=== PATIENT | female | born 2000 | race Caucasian/White ===

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

== ENCOUNTER → 2020-06-28 | Outpatient (CLI) | payer MEDICAID ==
[~2020-06-28] MED LIST: FERR325T18 PO
--- NOTE | 2020-06-28 15:51 | Diagnostic Imaging Report ---
PROCEDURE: US OB SINGLE FETUS <14 WKS. TECHNIQUE: Multiple real-time grayscale images were obtained over the gravid uterus in various projections. INDICATION: dates. FINDINGS: Uterus measures 9.5 x 7.4 x 8.5 cm. There is intrauterine gestational sac containing a pole consistent with approximately 9 weeks 2 days gestational age. heart rate was recorded at 182 bpm. No nancy-gestational sac hemorrhage is detected. Adnexa are unremarkable. There is no free fluid. IMPRESSION: Single live IUP 9 weeks 2 days gestational age. Estimated date of confinement sonographically is 01/29/2021. Dictated by: Dictated on workstation # [id number]
== END ==
LOC: RAD 14:00
PROVIDERS: ATTEND Family Medicine
DX: Z34.91 Encounter for supervision of normal pregnancy, unspecified, first trimester (principal); Z3A.09 9 weeks gestation of pregnancy
CPT/HCPCS: 76801

== ENCOUNTER 2020-08-22 19:32 | Emergency (ER) | payer MEDICAID ==
[~2020-08-22] VITALS: Ht 160 cm; Wt 67.0 kg
[2020-08-22 20:05] LABS: BILIRUBIN,URINE NEGATIVE (NEGATIVE); CLARITY,URINE CLEAR; COLOR,URINE YELLOW; GLUCOSE, URINE (UA) NEGATIVE (NEGATIVE); KETONES,URINE NEGATIVE (NEGATIVE); LEUKOCYTE ESTERASE ,URINE 1+ (NEGATIVE); NITRITE,URINE NEGATIVE (NEGATIVE); PH,URINE 7.5 (5-9); PROTEIN,URINE NEGATIVE (NEGATIVE)
[2020-08-22 20:13] LABS: AMORPHOUS SEDIMENT,UR MOD AMOR PHOSPHATE /LPF; BACTERIA,URINE TRACE /HPF; TRICHOMONAS,URINE FEW /HPF
--- NOTE | 2020-08-22 20:18 | ED EENT ---
History of Present Illness General Chief Complaint: Oral/Throat Problems Stated Complaint: 17 WKS PREG/SOB/HEADACHE/SORE THROAT/COUGH/FEVER Source: patient Exam Limitations: no limitations History of Present Illness Date Seen by Provider: August 22, 2020 Time Seen by Provider: 19:39 Initial Comments Patient presents ER by private conveyance from home with chief complaint that since Sunday, 2 days ago she started having some sinus pressure or rhinorrhea mild sore throat occasional dry nonproductive cough malaise and body aches. Several of her friends she was hanging out with on Sunday also developed similar symptoms and because one of them works at the hospital they are all convinced they have COVID-19. None of them have undergone any testing. She has been using Tylenol, vapor rubs and throat lozenges without significant relief of her symptoms. She is had no fever. She is a G1 at 17 weeks with uneventful thus far. No abdominal pain nausea vomiting diarrhea constipation discharge dysuria or vaginal bleeding. Allergies and Home Medications Allergies Coded Allergies: No Known Drug Allergies (Unverified , 03/13/18) Home Medications Ferrous Sulfate 325 Mg Tablet, 325 MG PO BID Prescribed by: MAREN ADHIKARI on 03/16/18 0807 Metronidazole 500 Mg Tablet, 500 MG PO BID Prescribed by: CORY ROMERO on 08/22/202022 Patient Home Medication List Home Medication List Reviewed: Yes Review of Systems Review of Systems Constitutional: No chills; malaise Eyes: Denies Blindness, Denies Blurred Vision, Denies Drainage Ears: Denies Dizziness, Denies Pain, Denies Purulent Discharge Nose: congestion; denies epistaxis, denies pain; clear discharge Mouth: denies pain, denies swelling Throat: denies pain, denies swelling; hoarse Respiratory: cough; No phlegm, No short of breath, No wheezing All Other Systems Reviewed Negative Unless Noted: Yes Past Hjtxkhl-Paieeg-Ygplwp Hx Patient Social History Alcohol Use: Denies Use Smoking Status: Never a Smoker Seasonal Allergies Seasonal Allergies: No Past Medical History Surgeries: No Respiratory: No Cardiac: No Neurological: No Genitourinary: No Gastrointestinal: No Musculoskeletal: No Endocrine: No HEENT: No Cancer: No Psychosocial: No Integumentary: No Blood Disorders: No Family Medical History Patient reports no known family medical history. Physical Exam Vital Signs Vital Signs - First Documented 08/22/20 20:01 Temp 37.0 Pulse 94 Resp 14 B/P (MAP) 119/63 (81) Pulse Ox 99 O2 Delivery Room Air Height, Weight, BMI Height: 5'3.00" Weight: 169lbs. 0.0oz. 76.007265wq; 29.9 BMI Method: General Appearance: WD/WN, no apparent distress Eyes: bilateral eye normal inspection, bilateral eye PERRL, bilateral eye EOMI Ears: bilateral ear auricle normal, bilateral ear canal normal, bilateral ear TM normal Nose: No foreign body; sinus tenderness (Maxillary and frontal sinuses bilateral tender to palpation without mucopurulent discharge.) Mouth/Throat: other (Retropharyngeal erythema with tonsillar swelling without exudative appearance) Neck: non-tender, full range of motion, supple, normal inspection Cardiovascular: normal peripheral pulses, regular rate, rhythm Respiratory: lungs clear, normal breath sounds, no respiratory distress, no accessory muscle use Neurologic/Psychiatric: alert, oriented x 3 Progress/Results/Core Measures Results/Orders Lab Results Laboratory Tests Test 08/22/20 19:39 Range/Units Urine Color YELLOW Urine Clarity CLEAR Urine pH 7.5 5-9 Urine Specific [place] 1.020 1.016-1.022 Urine Protein NEGATIVE NEGATIVE Urine Glucose (UA) NEGATIVE NEGATIVE Urine Ketones NEGATIVE NEGATIVE Urine Nitrite NEGATIVE NEGATIVE Urine Bilirubin NEGATIVE NEGATIVE Urine Urobilinogen 1.0 < = 1.0 MG/DL Urine Leukocyte Esterase 1+ H NEGATIVE Urine RBC (Auto) NEGATIVE NEGATIVE Urine RBC NONE /HPF Urine WBC 5-10 H /HPF Urine Squamous Epithelial Cells 10-25 H /HPF Urine Crystals PRESENT H /LPF Urine Amorphous Sediment MOD LIGIA PHOSPHATE H /LPF Urine Bacteria TRACE /HPF Urine Casts NONE /LPF Urine Mucus NEGATIVE /LPF Urine Trichomonas FEW H /HPF Urine Culture Indicated YES SARS-CoV-2 RNA (RT-PCR) Not Detected Not Detecte Group A Streptococcus Screen NEGATIVE NEGATIVE Micro Results Microbiology 08/22/20 Influenza Types A,B Antigen (SONIA) - Final, Complete My Orders Orders - CORY ROMERO Covid 19 Inhouse Test (08/22/20 19:34) Ua Culture If Indicated (08/22/20 19:36) Influenza A And B Antigens (08/22/20 19:34) Urine Bedside (08/22/20 19:36) Rapid Strep A Screen (08/22/20 19:52) Urine Culture (08/22/20 19:39) Azithromycin Tablet (Zithromax Tablet) (08/22/20 20:45) Ceftriaxone For Im Use (Rocephin For Im (08/22/20 20:45) Lidocaine 1% Inj 20 Ml (Xylocaine 1% Inj (08/22/20 20:45) Vital Signs/I&O 08/22/20 20:01 Temp 37.0 Pulse 94 Resp 14 B/P (MAP) 119/63 (81) Pulse Ox 99 O2 Delivery Room Air Progress Progress Note #1: Time: 20:16 Progress Note She appears to have a viral cold. Plan to check Covid, influenza since we have had several cases this week and a rapid strep. We have discussed appropriate medications and symptom management techniques as well as tempered her expectations for how long these illnesses usually last Progress Note #2: Time: 20:48 Progress Note Discussed trichomonas and its risk that he presents for premature rupture of membranes. We have opted to do Flagyl treatment as well as provided her partner a prescription for Flagyl. We also discussed the testing and treatment for other common STDs and she agreed to do that today so we will give her a half a gram of Rocephin IM and 1 g of azithromycin p.o. Departure Impression Primary Impression: Viral upper respiratory tract infection with cough Additional Impression: Trichomoniasis of bladder Disposition: 01 HOME, SELF-CARE Condition: Stable Departure-Patient Inst. Decision time for Depature: 20:16 Referrals: MAREN ADHIKARI MD (PCP/Family) Primary Care Physician Patient Instructions: Cough, Runny Nose, and the Common Cold (DC), Trichomoniasis (DC), Sexually Transmitted Diseases ED Add. Discharge Instructions: Typically these will resolve in 5 to 7 days on their own. Make sure you are drinking plenty of fluids and using Tylenol 1000 mg every 8 hours as necessary for pain. Nasal saline to help keep things moisturized as well as vapor rubs such as Vicks or Mentholatum can be helpful. You may use Zyrtec or Claritin 10 mg a day as necessary for symptoms. Alternatively you can use Benadryl as well but this may cause drowsiness. Throat lozenges if you are having a sore throat or Tea with honey and lemon has been found to be beneficial for sore throat. If your nasal congestion turns to thick purulent discharge, last for more than 10 days or has severe pain associated with it not resolved by heat, moisture and Tylenol then you should follow-up with your primary care provider for reexamination and to discuss initiation of antibiotics. You may return to work when you are 24 hours symptoms free without medications to mask symptoms. You have trichomonas which can be treated with Flagyl 1 tablet with food twice a day for the next week. Follow-up in the next week with your primary OB provider. All discharge instructions reviewed with patient and/or family. Voiced understanding. Scripts Metronidazole (Flagyl) 500 Mg Tablet 500 MG PO BID for 7 Days, #14 TAB 0 Refills Prov: CORY ROMERO 08/22/20 Work/School Note: Work Release Form Date Seen in the Emergency Department: August 22, 2020 Return to Work: August 30, 2020 Restrictions: No Restrictions Other Restrictions Listed Below: May return to work as soon as 24 hours symptom-free. Copy Copies To 1: MAREN ADHIKARI MD, TITUS J August 22, 2020 20:18
[2020-08-22] MEDS ORDERED: METR500T PO (20:23)
[2020-08-22] MEDS ORDERED: AZITHROMYCIN 250 MG TAB (ZITHROMAX) PO ONE (20:45)
[2020-08-22] MEDS ORDERED: LIDOCAINE 1% INJ 20 ML 20 ML VIAL INJ ONE (20:45)
[2020-08-22] MEDS ORDERED: cefTRIAXone 500 MG/1.43 ML vial (IM ONLY) IM ONE (20:45)
[2020-08-22 21:44] VITALS: BP 112/72
== END 2020-08-22 21:39 | disposition home or self-care (01) ==
LOC: EDUNIT# 19:32 → ER 19:35
DX: O99.512 Diseases of the respiratory system complicating pregnancy, second trimester (principal); J06.9 Acute upper respiratory infection, unspecified; O98.312 Other infections with a predominantly sexual mode of transmission complicating pregnancy, second trimester; A59.03 Trichomonal cystitis and urethritis; Z3A.17 17 weeks gestation of pregnancy
CPT/HCPCS: 81000; 84703; 87088; 87430; 87804; 96372; 99282; U0002; 87635

== ENCOUNTER → 2020-09-06 | Outpatient (CLI) | payer MEDICAID ==
[~2020-09-06] MED LIST changes: +METR500T PO
--- NOTE | 2020-09-06 15:02 | Diagnostic Imaging Report ---
INDICATION: survey. TECHNIQUE: Multiple Real-time grayscale images were obtained over the gravid uterus. COMPARISON: 06/28/2020. FINDINGS: There is a single fetus in a cephalic presentation. heart rate was recorded at 147 BPM. Placenta is posterior. Amniotic fluid volume is normal. Cervix is 4.2 cm in length. kidneys, bladder, and stomach are unremarkable. brain is unremarkable. There is a four-chamber heart. There is a three-vessel cord with normal insertion. spine is unremarkable. Biometrical measurements are as follows: Biparietal 4.27 cm, age 19 weeks 0 days. Head circumference 16.08 cm, age 19 weeks 0 days. Abdominal circumference 13.16 cm, age 18 weeks 5 days. Femur length 3.04 cm, age 19 weeks 3 days. Sonographic estimate age: 19 weeks 1 days. Sonographic estimated date of delivery: 01/30/21. Estimated Weight: 269 gm (+/- 39 gm). LMP percentile: 46%. heart rate: 147 beats per minute. number: 1 of 1. IMPRESSION: Single live IUP of 19 weeks 1 day gestational age. This demonstrates normal interval growth when compared with the prior exam. No complicating features are detected. Dictated by: Dictated on workstation # [id number]
== END ==
LOC: RAD 13:21
PROVIDERS: ATTEND Family Medicine
DX: Z34.92 Encounter for supervision of normal pregnancy, unspecified, second trimester (principal); Z3A.19 19 weeks gestation of pregnancy
CPT/HCPCS: 76805

== ENCOUNTER → 2020-11-19 | Outpatient (CLI) | payer MEDICAID | LOC: WSo 10:08 | PROVIDERS: ATTEND Family Medicine | DX: Z34.92 Encounter for supervision of normal pregnancy, unspecified, second trimester (principal); Z3A.00 Weeks of gestation of pregnancy not specified | CPT/HCPCS: 96372 ==

== ENCOUNTER 2021-01-20 08:15 | Inpatient (IN) | payer MEDICAID ==
[~2021-01-20] VITALS: Ht 162.6 cm; Wt 77.2 kg
--- OUTSIDE RECORDS SUMMARY | 2021-01-20 19:02 | XMS REPORT | Clinical Summary ---
Author Author [facility] Organization [facility] Address Unknown Phone Unavailable Care Team Providers Care Coroner Forensic Technician Name Role Phone Ap Ayana G STUDENT PCP Unavailable Allergies No known active allergies Medications End Date Status Medication Sig Dispensed Refills Start Date Active escitalopram (LEXAPRO) 10 Take 1 tablet 30 tablet 0 MG tabletIndications: (10 mg total) 9 Major Depressive Disorder by mouth daily. Indications: Major Depressive Disorder Active ferrous sulfate Take 1 tablet 30 tablet 0 01/24/20 1 (DAHLIA-IN-YVON) 325 (65 Fe) (325 mg 9 MG tabletIndications: total) by Iron Deficiency Anemia mouth daily with breakfast. Indications: Anemia From Inadequate Iron in the Body Active melatonin 5 MG Take 1 tablet 0 TABSIndications: Major (5 mg total) 9 depressive disorder, by mouth at recurrent severe without bedtime as psychotic features (HCC) needed (insomnia). 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 01/20/2019 Tobacco use 01/20/2019 Suicide attempt 01/20/2019 Anxiety disorder 01/20/2019 Cannabis use disorder, mild, abuse 01/20/2019 Psychophysiological insomnia 01/20/2019 Resolved Problems Problem Noted Date Resolved Date Depression, unspecified depression type 01/20/2019 01/20/2019 Family History Medical History Relation Name Comments Cancer Father Depression Father Diabetes Father Heart disease Father Depression Mother Diabetes Mother Heart disease Mother Relation Name Status Comments Father Mother Social History Date Tobacco Use Types Packs/Day Years Used Never Smoker Smokeless Tobacco: Never Used Comments Alcohol Use Standard Drinks/Week Drinks "anything", once a weekish Yes 4 (1 standard drink = 0.6 o z pure alcohol) Control Partners Comments Sexually Active None LMP 01/10/19 Yes Sex Assigned at Date Recorded Not on file Last Filed Vital Signs Reading Time Taken Comments Vital Sign 95/55 01/22/2019 5:06 AM CDT Blood Pressure 74 01/22/2019 5:06 AM CDT Pulse 36.7 C (98.1 F) 01/22/2019 5:05 AM CDT Temperature 16 01/22/2019 5:06 AM CDT Respiratory Rate 100% 01/22/2019 5:06 AM CDT Oxygen Saturation - - Inhaled Oxygen Concentration 70.3 kg (155 lb) 01/20/2019 2:36 AM CDT Weight 160 cm (5' 3") 01/20/2019 2:36 AM CDT Height 27.46 01/20/2019 2:36 AM CDT Body Mass Index Plan of Treatment Health Maintenance Due Date Last Done Comments HPV Vaccines (1 - 2-dose 08/03/2011 series) COVID-19 Vaccine (1) 2012 MenB Vaccine (Bexsero) (1 2016 of 2) Hepatitis C Screening 2018 DTaP,Tdap,and Td Vaccines 08/03/2019 (1 - Tdap) MMR Vaccines-Adult 08/03/2019 Influenza Vaccine (#1) 2020 01/09/2020 Pneumo-Vaccine: 65+Yrs (1 2065 of 1 - PPSV23) Varicella Vaccines Completed 11/13/2006, 10/02/2001 HIB Vaccines Aged Out No longer eligible based on patient's age to complete this topic IPV Vaccines Aged Out No longer eligible based on patient's age to complete this topic Meningococcal Vaccine Aged Out No longer eligib le based on patient's age to complete this topic Pneumo-Vaccine: Peds (0-5 Aged Out No longer el igible based on patient's age to Yrs) & At-Risk Patients complete this topic (6-64 Yrs) Rotavirus Vaccines Aged Out No longer eligible based on patient's age to complete this topic Results Not on filefrom Last 3 Months Insurance Type Payer Benefit Subscriber ID Effective Phone Address Plan / Dates Group KANCARE [employer]ET[employer] KANCARE 19 [id number] 2019- [address] [employer] Present [id number] [facility] [id number] Advance Directives For more information, please contact: [phone] Patient Rolling Attendant Explanation Type Date Recorded Advance Directives and Living Will Power of Chemical Mixer Date Inactivated Comments Code Status Date Activated Full Code 01/22/2019 9:54 AM 01/22/2019 9:54 AM Full Code 01/20/2019 3:45 AM Care Teams Start Date End Date Coroner Forensic Technician Relationship Specialty 01/20/19 Ayana De Souza, PCP - General STUDENT
[2021-01-20] MEDS ORDERED: D5 LR IV SOLUTION 1,000 ML IV ONE (19:12)
[2021-01-20] MEDS: D5 LR IV SOLUTION 1,000 ML IV SCH (19:30)
[2021-01-20] MEDS ORDERED: AMPICILLIN FOR IV USE 2,000 MG in WATER (STERILE) FOR INJECTION 14.8 ML IV SCH (19:50)
[2021-01-20] MEDS ORDERED: MINERAL OIL CONCENTRATE 99.9% 15 ML UDC TOP PRN (20:00)
[2021-01-20] MEDS ORDERED: ZOLPIDEM 5 MG (AMBIEN) TAB ONE (20:55)
[2021-01-20 21:00] VITALS: BP 117/73
[2021-01-20] MEDS ORDERED: BUTORPHANOL INJ 2 MG/ML (STADOL) VIAL IV PRN (21:00)
[2021-01-20] MEDS ORDERED: TERBUTALINE INJ 1 MG/ML (BRETHINE) AMP SC PRN (21:00)
[2021-01-20] MEDS ORDERED: ZOLPIDEM 5 MG (AMBIEN) TAB PO ONE (21:00)
[2021-01-20] MEDS ORDERED: ONDANSETRON 4 MG/2 ML (SDV) Z0FRAN IVP PRN (21:00)
[2021-01-20 22:48] LABS: BASOPHILS % (AUTO) 0 % (0-10); EOSINOPHILS # (AUTO) 0.2 10^3/uL (0.0-0.3); EOSINOPHILS % (AUTO) 1 % (0-10); HEMATOCRIT 33 % (35-52); HEMOGLOBIN 9.9 g/dL (11.5-16.0); LYMPHOCYTES # (AUTO) 3.2 10^3/uL (1.0-4.0); LYMPHOCYTES % (AUTO) 23 % (12-44); MEAN CORPUSCULAR HEMOGLOBIN 26 pg (25-34); MEAN CORPUSCULAR HGB CONC 30 g/dL (32-36); MEAN CORPUSCULAR VOLUME 84 fL (80-99); MONOCYTES # (AUTO) 0.7 10^3/uL (0.0-1.0); MONOCYTES % (AUTO) 5 % (0-12); NEUTROPHILS # (AUTO) 9.7 10^3/uL (1.8-7.8); NEUTROPHILS % (AUTO) 70 % (42-75); PLATELET COUNT 277 10^3/uL (130-400); WHITE BLOOD COUNT 13.9 10^3/uL (4.3-11.0)
[2021-01-21] VITALS (53 sets, daily range): BP systolic 83–129; BP diastolic 47–82
[2021-01-21] MEDS: AMPICILLIN FOR IV USE 1,000 MG in WATER (STERILE) FOR INJECTION 7.4 ML IV SCH ×4 (01:40→13:57)
[2021-01-21] MEDS: D5 LR IV SOLUTION 1,000 ML IV SCH ×2 (04:28→12:40)
--- NOTE | 2021-01-21 06:25 | History & Physical-OB ---
OB - Chief Complaint & HPI Date/Time Date of Admission: Date of Admission: Jan 20, 2021 at 18:57 Date seen by a Provider: Jan 21, 2021 Time Seen by a Provider: 06:25 Chief Complaint/History OB-Reason for Admission/Chief: Induction of Labor Hx : 2 Hx Para: 1 Expected Date of Delivery: Jan 29, 2021 Gestational Age in Weeks: 38 Gestational Age in Days: 6 Indication for induction: maternal distance Admission Nurse Assessment Rev: Yes History of Labs GBS negative, but previous with having GBS sepsis Allergies and Home Medications Allergies Coded Allergies: No Known Drug Allergies (Unverified , 03/13/18) Patient Home Medication List Home Medication List Reviewed: Yes Ferrous Sulfate (Ferrous Sulfate) 325 Mg Tablet, 325 MG PO BID Prescribed by: MAREN ADHIKARI on 03/16/18 0807 Last Action: Reviewed Discontinued Medications Metronidazole (Flagyl) 500 Mg Tablet, 500 MG PO BID Discontinued Reason: No Longer Taking Prescribed by: CORY ROMERO on 08/22/202022 Last Action: Discontinued OB - History Hx of Present Care: Yes Ultrasounds: Normal mid trimester US Obstetrical Complications: None Medical Complications: None Patient Past Medical History no chronic medical problems OB - Admission Exam Physical Exam Vitals: Vital Signs 01/20/21 01/21/21 21:00 06:00 Temp 36.8 Pulse 82 Resp 18 B/P (MAP) 88/53 (65) Pulse Ox 97 O2 Delivery Room Air HEENT: Moist Membranes Heart: Rhythm Normal Lungs: Clear Abdomen: Gravid Cervical Dilatation: 1cm Effacement: 50% Station: -3 Membranes: Intact Heart Rate: 130's Labs Laboratory Tests Test 01/20/21 22:36 Range/Units White Blood Count 13.9 H 4.3-11.0 10^3/uL Red Blood Count 3.87 3.80-5.11 10^6/uL Hemoglobin 9.9 L 11.5-16.0 g/dL Hematocrit 33 L 35-52 % Mean Corpuscular Volume 84 80-99 fL Mean Corpuscular Hemoglobin 26 25-34 pg Mean Corpuscular Hemoglobin Concent 30 L 32-36 g/dL Red Cell Distribution Width 23.7 H 10.0-14.5 % Platelet Count 277 130-400 10^3/uL Mean Platelet Volume 10.0 9.0-12.2 fL Immature Granulocyte % (Auto) 1 % Neutrophils (%) (Auto) 70 42-75 % Lymphocytes (%) (Auto) 23 12-44 % Monocytes (%) (Auto) 5 0-12 % Eosinophils (%) (Auto) 1 0-10 % Basophils (%) (Auto) 0 0-10 % Neutrophils # (Auto) 9.7 H 1.8-7.8 10^3/uL Lymphocytes # (Auto) 3.2 1.0-4.0 10^3/uL Monocytes # (Auto) 0.7 0.0-1.0 10^3/uL Eosinophils # (Auto) 0.2 0.0-0.3 10^3/uL Basophils # (Auto) 0.0 0.0-0.1 10^3/uL Immature Granulocyte # (Auto) 0.1 0.0-0.1 10^3/uL OB - Assessment/Plan/Diagnosis Assessment Assessment: induction of labor Admission Dx 1. IUP at 38w6d gestation Admission Status: Inpatient Order (span 2 midnights) Reason for Inpatient Admission: Induction of labor Plan Plan: Induction Induction Method: per Misoprostol Protocol MAREN ADHIKARI MD Jan 21, 2021 06:25
[2021-01-21] MEDS ORDERED: OXYTOCIN PRE-MIX DRIP 500 ML IV SCH ×2 (07:45→17:00)
[2021-01-21] MEDS ORDERED: FLU QUADRIvalent (3YOA+) 60 mcg/0.5 ml 2021-22(AFLURIA) IM ONE (08:00)
[2021-01-21] MEDS ORDERED: fentaNYL 2 mcg/ml BUPIVA 0.125 100 ML ONE (08:52)
[2021-01-21] MEDS ORDERED: BUPIVACAINE 0.25% 30 ML (SENSORCAINE) VIAL ONE (09:21)
[2021-01-21] MEDS ORDERED: fentaNYL INJ 100 MCG/2 ML AMP ONE (09:21)
[2021-01-21] MEDS ORDERED: CATHETER FLUSH 10 ML SYR IV PRN (09:30)
[2021-01-21] MEDS ORDERED: diphenhydrAMINE 50 MG/ML INJ (BENADRYL) IV PRN (09:30)
[2021-01-21] MEDS ORDERED: fentaNYL 2 mcg/ml BUPIVA 0.125 100 ML IV SCH (09:30)
[2021-01-21] MEDS ORDERED: NALOXONE 0.4 MG/ML 1 ML (NARCAN) VIAL IV PRN ×2 (09:30→17:00)
[2021-01-21] MEDS ORDERED: ONDANSETRON 4 MG/2 ML (SDV) Z0FRAN IV PRN (09:30)
[2021-01-21] MEDS ORDERED: LACTATED RINGERS 1,000 ML IV ONE (09:30)
[2021-01-21] MEDS: CATHETER FLUSH 10 ML SYR IV SCH ×3 (10:42→15:50)
[2021-01-21] MEDS ORDERED: MEPIVACAINE (CARBOCAINE) 2% 50 ML VIAL ONE (16:15)
--- NOTE | 2021-01-21 16:57 | OB Labor & Delivery Record ---
L&D History Date of Service Date of Service: Jan 21, 2021 History Expected Date of Delivery: Jan 29, 2021 Gestational Age in Weeks: 38 Hx : 2 Hx Para: 2 Complications Events: Routine care Operative Indications (Cesarea: N/A-Vaginal Delivery Intrapartal Events: None L&D Stage1 Stage One Onset of Labor - Date: Jan 21, 2021 Onset of Labor - Time: 06:25 Monitors and Tracing Monitor Mode: Internal Heart Rate: 140 Monitor Accelerations: Uniform Monitor Decelerations: None Station: -1 Shelter Variability: Average (6-10) Short Term Variability: Present Presentation: Vertex Vital Signs VS - Last 72 Hours, by Label 01/20/21 01/20/21 01/20/21 01/21/21 21:00 22:00 23:00 00:00 Temp 36.8 Pulse 94 85 85 86 Resp 18 18 18 18 B/P (MAP) 117/73 (88) 110/61 (77) Pulse Ox 98 96 96 99 O2 Delivery Room Air Room Air Room Air Room Air 01/21/21 01/21/21 01/21/21 01/21/21 01:00 02:00 02:00 03:00 Pulse 85 91 83 91 Resp 18 18 18 18 B/P (MAP) 100/57 (71) 95/54 (68) Pulse Ox 97 98 97 98 O2 Delivery Room Air Room Air Room Air Room Air 01/21/21 01/21/21 01/21/21 01/21/21 04:00 05:00 05:00 06:00 Temp 36.8 Pulse 81 81 85 82 Resp 18 18 18 18 B/P (MAP) 97/58 (71) 88/53 (65) Pulse Ox 99 99 97 97 O2 Delivery Room Air Room Air Room Air Room Air 01/21/21 01/21/21 01/21/21 01/21/21 06:00 07:00 07:10 07:30 Temp 36.6 Pulse 72 Resp 18 18 B/P (MAP) 115/67 (83) Pulse Ox 99 O2 Delivery Room Air Room Air Room Air Room Air 01/21/21 01/21/21 01/21/21 01/21/21 08:00 08:15 08:30 08:45 Pulse 80 86 81 Resp 16 16 16 B/P (MAP) 109/70 (83) 108/62 (77) 104/66 (79) O2 Delivery Room Air Room Air Room Air Room Air 01/21/21 01/21/21 01/21/21 01/21/21 09:00 09:15 09:25 09:30 Pulse 76 100 84 Resp 16 16 16 B/P (MAP) 117/75 (89) 129/70 (89) 111/71 (84) Pulse Ox 99 100 O2 Delivery Room Air Room Air Room Air Room Air 01/21/21 01/21/21 01/21/21 01/21/21 09:35 09:45 09:48 09:51 Pulse 88 90 99 126 Resp 16 16 16 16 B/P (MAP) 106/63 (77) 108/65 (79) 112/69 (83) 107/67 (80) Pulse Ox 98 97 98 97 O2 Delivery Room Air Room Air Room Air Room Air 01/21/21 01/21/21 01/21/21 01/21/21 09:54 09:57 10:00 10:05 Temp 36.5 Pulse 125 122 135 137 Resp 16 16 16 16 B/P (MAP) 105/59 (74) 107/60 (76) 124/80 (95) Pulse Ox 97 97 98 97 O2 Delivery Room Air Room Air Room Air Room Air 01/21/21 01/21/21 01/21/21 01/21/21 10:06 10:07 10:15 10:20 Pulse 122 98 86 97 Resp 16 16 16 16 B/P (MAP) 127/82 (97) 117/67 (84) 106/66 (79) 118/67 (84) Pulse Ox 97 97 98 97 O2 Delivery Room Air Room Air Room Air Room Air 01/21/21 01/21/21 01/21/21 01/21/21 10:30 10:45 11:00 11:15 Pulse 88 62 75 67 Resp 16 16 16 16 B/P (MAP) 106/61 (76) 91/55 (67) 95/57 (70) 88/50 (63) Pulse Ox 98 96 96 97 O2 Delivery Room Air Room Air Room Air Room Air 01/21/21 01/21/21 01/21/21 01/21/21 11:30 11:45 12:00 12:15 Temp 36.6 Pulse 63 65 67 66 Resp 16 16 16 16 B/P (MAP) 83/47 (59) 86/53 (64) 97/54 (68) 91/54 (66) Pulse Ox 97 97 97 97 O2 Delivery Room Air Room Air Room Air Room Air 01/21/21 01/21/21 01/21/21 01/21/21 12:30 12:45 13:00 13:15 Pulse 87 64 71 78 Resp 16 16 16 16 B/P (MAP) 110/67 (81) 101/58 (72) 97/56 (70) 103/65 (78) Pulse Ox 97 97 97 97 O2 Delivery Room Air Room Air Room Air Room Air 01/21/21 01/21/21 01/21/21 01/21/21 13:30 13:45 14:00 14:15 Temp 36.6 Pulse 79 86 73 83 Resp 16 16 16 16 B/P (MAP) 99/60 (73) 101/63 (76) 98/59 (72) 99/56 (70) Pulse Ox 97 97 97 97 O2 Delivery Room Air Room Air Room Air Room Air 01/21/21 01/21/21 01/21/21 01/21/21 14:30 14:45 15:00 15:15 Pulse 69 88 82 Resp 16 16 16 B/P (MAP) 96/52 (67) 99/52 (68) 106/63 (77) Pulse Ox 97 O2 Delivery Room Air Room Air Room Air Room Air 01/21/21 15:30 Pulse 81 Resp 16 B/P (MAP) 93/50 (64) O2 Delivery Room Air Signs of Distress by FHT Signs of Distress no Rupture of Membranes Spontaneous Ruture of Membrane: No Amniotic Membrane Rupture Time: 0625 Amniotic Membrane Fluid Desc.: Clear Induction/Anesthesia Epidural Cath Placement - Time: 0936 L&D Stage2 Stage Two Stage II Date: Jan 21, 2021 Stage II Time: 16:35 Monitors and Tracing Monitor Mode: Internal Heart Rate: 140 Monitor Accelerations: Uniform Monitor Decelerations: Variable Shelter Variability: Average (6-10) Short Term Variability: Present Position: Left Occiput Anterior Presentation: Vertex Signs of Distress by FHT Signs of Distress no Cord Descript/Complications Cord Vessel Description: 3 Vessels Delivery Type Infant Delivery Method: Spontaneous Vaginal Anterior Shoulder: Left Episiotomy/Perineal Laceration Laceraction(s)/Extensions: No Episiotomy Description: None Condition of Infant Delivery 1 minute Comment: 8 5 minute Comment: 9 Condition of Condition of : Living Exam: No Observed Abnormalities Resuscitation Resuscitation: N/A - Spontaneous Resp L&D Stage3 Stage Three Stage III Date: Jan 21, 2021 Stage III Time: 16:41 Pictocin Pitocin Administration mu/min: 28 Pitocin ml/hr: 28 Pitocin Administration Comment: 1355 pitocin increased Placenta Delivery Placenta Delivery: Spontaneous Delivery Summary Summary Estimated blood loss (mL): 150 Condition of Delivery Examined: Cervix Examined Post Hemorrhage: No Intervention Required none MAREN ADHIKARI MD Jan 21, 2021 16:57
[2021-01-21] MEDS ORDERED: BENZOCAINE/MENTHOL (DERMOPLAST) 56 ML CAN TP PRN (17:00)
[2021-01-21] MEDS ORDERED: MEASLES,MUMPS,RUBELLA 1 EA INJ SQ ONE (17:00)
[2021-01-21] MEDS ORDERED: WITCH HAZEL(TUCKS) 40 EA JAR TOP PRN (17:00)
[2021-01-21] MEDS ORDERED: TETANUS,DIPTH,PERTUSS P/F (BOOSTRIX) 0.5 ML VIAL IM ONE (17:00)
[2021-01-21] MEDS: ACETAMINOPHEN 500 MG TAB (TYLENOL) PO SCH (18:19)
[2021-01-21] MEDS: IBUPROFEN 600 MG (MOTRIN) TAB PO SCH ×2 (18:19→23:23)
[2021-01-21] MEDS: DOCUSATE SODIUM 100 MG (COLACE) CAP PO SCH (21:33)
[2021-01-21] MEDS: FERROUS SULF 325 MG (IRON) TAB PO SCH (21:33)
[2021-01-21] MEDS ORDERED: CATHETER FLUSH 10 ML SYR IV SCH (22:00)
[2021-01-22 02:22] VITALS: BP 100/53
[2021-01-22] MEDS: ACETAMINOPHEN 500 MG TAB (TYLENOL) PO SCH ×5 (02:22→23:41)
[2021-01-22 06:34] VITALS: BP 110/61
[2021-01-22] MEDS: IBUPROFEN 600 MG (MOTRIN) TAB PO SCH ×4 (06:34→23:41)
[2021-01-22 06:46] LABS: BASOPHILS % (AUTO) 0 % (0-10); EOSINOPHILS # (AUTO) 0.2 10^3/uL (0.0-0.3); EOSINOPHILS % (AUTO) 1 % (0-10); HEMATOCRIT 31 % (35-52); HEMOGLOBIN 9.4 g/dL (11.5-16.0); LYMPHOCYTES # (AUTO) 2.9 10^3/uL (1.0-4.0); LYMPHOCYTES % (AUTO) 17 % (12-44); MEAN CORPUSCULAR HEMOGLOBIN 26 pg (25-34); MEAN CORPUSCULAR HGB CONC 30 g/dL (32-36); MEAN CORPUSCULAR VOLUME 84 fL (80-99); MEAN PLATELET VOLUME 9.7 fL (9.0-12.2); MONOCYTES # (AUTO) 1.2 10^3/uL (0.0-1.0); MONOCYTES % (AUTO) 7 % (0-12); NEUTROPHILS # (AUTO) 12.2 10^3/uL (1.8-7.8); NEUTROPHILS % (AUTO) 74 % (42-75); PLATELET COUNT 252 10^3/uL (130-400); WHITE BLOOD COUNT 16.5 10^3/uL (4.3-11.0)
[2021-01-22] MEDS ORDERED: PNV1TABL67 PO (11:06)
[2021-01-22] MEDS ORDERED: IBUP-844 PO (11:06)
[2021-01-22 11:10] VITALS: BP 108/66
[2021-01-22] MEDS: FERROUS SULF 325 MG (IRON) TAB PO SCH ×2 (11:13→23:41)
[2021-01-22] MEDS: DOCUSATE SODIUM 100 MG (COLACE) CAP PO SCH ×2 (11:13→23:41)
[2021-01-22] MEDS: PRENATAL VITAMIN 1 EA TAB PO SCH (11:17)
--- NOTE | 2021-01-22 13:02 | Progress Note ---
Subjective Subjective/Events-last exam Afebrile since delivery, denies shortness of breath, chest pain, swelling or dizziness. States bleeding is minimal. Objective Exam Last Set of Vital Signs Vital Signs Date Time Temp Pulse Resp B/P (MAP) Pulse Ox O2 Delivery O2 Flow Rate FiO2 01/22/21 06:34 36.4 74 16 110/61 (77) 97 Room Air Capillary Refill : I&O Intake and Output 01/22/21 00:00 Intake Total 4029.6 ml Balance 4029.6 ml Intake IV Total 4029.6 ml Daily Weight Change No General: Alert, No Acute Distress Lungs: Clear to Auscultation, Normal Air Movement Heart: Regular Rate, No Murmurs Abdomen: Other (Fundus firm below umbilicus, moderately ttp) Neuro: Normal Speech Psych/Mental Status: Mood NL Results/Procedures Lab Laboratory Tests 01/22/21 06:33: White Blood Count 16.5H, Red Blood Count 3.68L, Hemoglobin 9.4L, Hematocrit 31L, Mean Corpuscular Volume 84, Mean Corpuscular Hemoglobin 26, Mean Corpuscular Hemoglobin Concent 30L, Red Cell Distribution Width 23.2H, Platelet Count 252, Mean Platelet Volume 9.7, Immature Granulocyte % (Auto) 1, Neutrophils (%) (Auto) 74, Lymphocytes (%) (Auto) 17, Monocytes (%) (Auto) 7, Eosinophils (%) (Auto) 1, Basophils (%) (Auto) 0, Neutrophils # (Auto) 12.2H, Lymphocytes # (Auto) 2.9, Monocytes # (Auto) 1.2H, Eosinophils # (Auto) 0.2, Basophils # (Auto) 0.0, Immature Granulocyte # (Auto) 0.1 Assessment/Plan Assessment/Plan (1) (spontaneous vaginal delivery) Status: Acute Assessment & Plan: Routine care (2) anemia Status: Acute Assessment & Plan: Acute blood loss anemia. Ferrous sulfate daily. (3) Rh negative, maternal Status: Acute Assessment & Plan: Infant A positive, Rhogam ordered. Qualifiers: Qualified Codes: O26.893 - Other specified related conditions, third trimester; Z67.91 - Unspecified blood type, rh negative ZAYDA COHEN MD Jan 22, 2021 13:02
[2021-01-22 16:00] VITALS: BP 112/73
[2021-01-22] MEDS: TETANUS & DIPHTHERIA TOX,ADULT 0.5 ML (TENIVAC) IM ONE ×2 (18:04→19:09)
[2021-01-22 23:00] VITALS: BP 121/68
[2021-01-23 05:58] VITALS: BP 126/68
[2021-01-23] MEDS: IBUPROFEN 600 MG (MOTRIN) TAB PO SCH (05:58)
[2021-01-23] MEDS: ACETAMINOPHEN 500 MG TAB (TYLENOL) PO SCH (05:58)
--- NOTE | 2021-01-23 07:15 | Discharge Summary ---
Discharge Summary Hospital Course Problems/Diagnosis: (1) (spontaneous vaginal delivery) Status: Acute Assessment & Plan: Routine care (2) anemia Status: Acute Assessment & Plan: Acute blood loss anemia. Ferrous sulfate daily. (3) Rh negative, maternal Status: Acute Assessment & Plan: Infant A positive, Rhogam given. Qualifiers: Qualified Codes: O26.893 - Other specified related conditions, third trimester; Z67.91 - Unspecified blood type, rh negative Hospital Course Date of Admission: Jan 20, 2021 at 18:57 Admission Diagnosis : Active labor 38 weeks gestation Family Physician/Provider: Maren Adhikari MD Date of Discharge: 01/23/21 Discharge Diagnosis: See problem list Hospital Course: See problem list Labs and Pending Lab Test: Home Meds Active Pnv Plus Multivit Tab (Pnv with Ca,No.72/Iron/FA) 1 Each Tablet 1 Ea PO DAILY@0700 Ibu (Ibuprofen) 600 Mg Tablet 600 Mg PO Q6HR PRN Ferrous Sulfate 325 Mg Tablet 325 Mg PO BID Assessment/Pt DC Instructions Follow up in [address] Adhikari for visit. Discharge Diet: No Restrictions Activity as Tolerated: Yes (avoid strenuous activity x 6 weeks) Discharge Physical Examination Allergies: Coded Allergies: No Known Drug Allergies (Unverified , 03/13/18) General Appearance: No Apparent Distress Respiratory: Lungs Clear, Normal Breath Sounds Cardiovascular: Regular Rate, Rhythm, No Murmur Gastrointestinal: Other (fundus firm below umbilicus) Extremity: No Pedal Edema Skin: Normal Color, Warm/Dry Neurologic/Psychiatric: Alert, Normal Mood/Affect Copy Copies To 1: MAREN ADHIKARI MD, BETHANY N MD Jan 23, 2021 07:15
[2021-01-23] MEDS ORDERED: TETANUS,DIPTH,PERTUSS P/F (BOOSTRIX) 0.5 ML VIAL IM ONE (08:33)
[2021-01-23] MEDS: FERROUS SULF 325 MG (IRON) TAB PO SCH (08:35)
[2021-01-23] MEDS: PRENATAL VITAMIN 1 EA TAB PO SCH (08:35)
[2021-01-23] MEDS: DOCUSATE SODIUM 100 MG (COLACE) CAP PO SCH (08:35)
[2021-01-23 08:42] VITALS: BP 111/70
--- NOTE | 2021-01-23 10:08 | Anesthesia-Regional Post-Op ---
Regional Patient Condition Mental Status: Alert, Oriented x3 Circulation: Same as Pre-Op Headache: Absent Sensation: Full Recovery Motor Block: Absent Post Op Complications Complications None Follow Up Care/Instructions Patient Instructions None needed. Anesthesia/Patient Condition Patient is doing well, no complaints, stable vital signs, no apparent adverse anesthesia problems. No complications reported per nursing. WILL CHAUDHARY CRNA Jan 23, 2021 10:08
[2021-01-23 10:37] VITALS: BP 111/70
== END 2021-01-23 11:37 | disposition home or self-care (01) | DRG 806 ==
LOC: LDRP 18:57
PROVIDERS: ADMIT Family Medicine; ATTEND Family Medicine
PROC: 10E0XZZ Delivery of Products of Conception, External Approach (ICD-10-PCS; principal; 2021-01-22)
DX: O26.893 Other specified pregnancy related conditions, third trimester (principal); D62 Acute posthemorrhagic anemia; Z37.0 Single live birth; Z3A.38 38 weeks gestation of pregnancy; O90.81 Anemia of the puerperium; Z67.91 Unspecified blood type, Rh negative
CPT/HCPCS: 36415; 83033; 85025; 86850; 86900; 86901; 90714; 90715